=== PATIENT | male | born 1950 | race Caucasian/White ===

== ENCOUNTER 2020-08-22 08:39 | Outpatient (REF) | payer OTHER, MEDICARE, SELFPAY ==
--- NOTE | ~2020-08-22 | MR_ITS ---
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 Pre-and postcontrast images were evaluated. 9 cc of Gadavist intravenous contrast was utilized without incident. Diffusion-weighted imaging with apparent diffusion coefficient calculation were performed. Due to a scanner malfunction, the postcontrast perfusion sequence failed and could not be processed. Delayed postcontrast images were obtained. The study was reviewed on a dedicated independent workstation and extensively post processed for multi-parametric mapping and analysis. PIRADS 2.0 Criteria was utilized in reporting. Comparison: No pertinent prior studies were available for comparison Findings: The prostate measures 4.9 x 4.2 x 4.2 cm in size for a volume of 45 cc. The transitional zone is enlarged and heterogeneous. The prostate contour is smooth. 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 as described below: REGION OF INTEREST ONE: Location: Right base lateral peripheral zone PI RADS category: 4 Dominant sequence:*Diffusion-weighted imaging T2 weighting (Peripheral Zone): Circumscribed, homogeneous moderate hypointense focus/mass confined to the prostate and less than 1.5 cm in greatest dimension PI-RADS category: 4 *Diffusion/ADC mapping (dominant sequence for peripheral zone): Focal markedly hypointense on ADC and markedly hyperintense on high b-value DWI; less than 1.5 cm in greatest dimension PI-RADS category: 4 T1-weighting: Heterogeneously increased T1 signal suggesting postbiopsy hematoma. PI-RADS category: 2 Perfusion/dynamic contrast enhancement: Not available PI-RADS category: Not available Mild heterogeneous signal seen elsewhere in the gland but no other discrete lesions were marked. EXTRAPROSTATIC: Seminal vesicles: Within normal limits and symmetric. Prostate capsule: The capsule is intact. No suspicious signal in the region of the neurovascular bundle. No disruption to the fascial planes between the prostate and rectum. Regional assessment: There are no enlarged pelvic lymph nodes identified. Marrow/osseous structures: No suspicious marrow signal abnormality. Pelvis: No suspicious pelvic mass or collection. No free pelvic fluid. Urinary bladder is mildly indented by the prostate but otherwise within normal limits. MR/MR pelvis wo/w con IMPRESSION: Technically limited study performed on a 1.5 [facility] MR system and there was a technical issue with the postcontrast images, which were obtained delayed. There is an irregular region of hypointense T2 signal and markedly reduced diffusion seen on a single slice at the right base lateral peripheral zone, axial ADC series 1000 image . The abnormality could represent artifact as it is immediately inferior to the right seminal vesicle. Nonetheless, this was delineated as a region of interest in consideration of possible MR guided fusion biopsy. There are numerous patchy areas of T1 bright signal throughout the peripheral zone consistent with postbiopsy hematoma. No evidence for extraprostatic extension. No regional metastases were identified on the study. Overall PI-RADS category: 4 PI-RADS category 1 = clinically significant disease is highly unlikely to be present PI-RADS category 2 = clinically significant cancer unlikely to be present PI-RADS category 3 = clinically significant cancer is equivocal (low suspicion) PI-RADS category 4 = clinically significant cancer is likely to be present (moderate suspicion) PI-RADS category 5 = clinically significant cancer is highly likely to be present (high suspicion)
[2020-08-22 09:24] LABS: Blood Urea Nitrogen 18 mg/dL (9-16); Estimated Glomerular Filt Rate > 60
== END 2020-08-22 08:40 | disposition home or self-care (01) ==
LOC: HO.MRI 08:39
PROVIDERS: Visit Provider Urology
DX: D49.59 Neoplasm of unspecified behavior of other genitourinary organ (principal)
CPT/HCPCS: 36415; 72197; 82565; 84520; A9585